=== PATIENT | male | born 1980 | race Caucasian/White ===

== ENCOUNTER → 2017-07-29 | Outpatient (CLI) | payer OTHER ==
--- NOTE | 2017-07-29 12:29 | EST ---
EXERCISE STRESS DATE OF SERVICE: 07/29/2017 AGE: 37 SEX: Male HT: 66 WT: 155 PROTOCOL: Vincent STAGE: V DURATION OF EXERCISE: 14:30 HEART RATE REST: 64 BLOOD PRESSURE REST: 129/69 MAXIMUM HEART RATE ACHIEVED: 158 MAXIMUM BLOOD PRESSURE: 181/67 85% MPHR: 157 100% MPHR: 185 METS: 14.9 INDICATIONS: Syncope. CLINICAL INFORMATION: History of syncope. Baseline heart rate was 64 beats per minute. Baseline blood pressure 129/69 mmHg. Baseline 12-lead ECG showed normal sinus rhythm with early repolarization abnormality and incomplete right bundle branch block morphology. The patient exercised on a Vincent protocol for 14 minutes 30 seconds. Peak heart rate 158 beats per minute. Normal blood pressure response to exercise. Occasional PVCs were noted during exercise, there was no ECG evidence for ischemia. No sustained or nonsustained arrhythmias were noted. IMPRESSION: Good exercise capacity. No ECG evidence for ischemia or arrhythmia. MMODL / IJN: [id number] /
== END | disposition home or self-care (01) ==
LOC: RADNMMAIN 11:04
PROVIDERS: ATTEND Family Medicine
DX: R55 Syncope and collapse (principal)
CPT/HCPCS: 93017

== ENCOUNTER → 2017-08-03 | Outpatient (CLI) | payer OTHER | END | disposition home or self-care (01) | LOC: RADECHMAIN 11:51 | PROVIDERS: ATTEND Family Medicine | DX: R00.1 Bradycardia, unspecified (principal); R00.0 Tachycardia, unspecified | CPT/HCPCS: 93270; 93271 ==

== ENCOUNTER → 2017-11-02 | Outpatient (CLI) | payer OTHER ==
--- NOTE | 2017-11-02 11:14 | CONS ---
CONSULTATION DATE OF SERVICE: 11/02/2017. A 37-year-old gentleman who has been evaluated in the [facility] for excessive daytime sleepiness. HISTORY OF PRESENT ILLNESS/SLEEP WAKE EVALUATION: Patient referred to sleepiness during the day for a long period of time. 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 He has several episodes of syncope. Presently, his sleep schedule on working days he sleeps from 8:30 a.m. until 3:30 pm. On days off, he sleeps from 11 p.m. until 6:30 am. He does have problem with falling asleep, has TV set in bedroom. He wakes up from sleep 2 times with nocturia, sometimes has discomfort in his legs, feeling some restless leg symptoms with history of kicking. Sometimes has to walk at night because he feels discomfort in his legs. [place] Sleepiness Scale is 11. PAST MEDICAL HISTORY: Positive for possible depression. MEDICATIONS: Wellbutrin. PAST SURGICAL HISTORY: None. SOCIAL HISTORY: Negative for smoking. Alcohol consumption occasional. FAMILY HISTORY: Hypertension, heart problems, asthma. REVIEW OF SYSTEMS: Excessive daytime sleepiness, difficulties to initiate sleep and multiple awakenings from sleep. PHYSICAL EXAM: A 37-year-old gentleman without distress. BP 118/74, HR 73, RR 16, height 5, 7, weight 163.8, BMI 25.5, temperature 97.7 oxygen saturation at room air 97%. OROPHARYNX: Extremely low position of soft palate. Restriction of nasal breathing bilaterally. Neck Supple, no JVD. Thyroid is not palpable. LUNGS Clear to percussion and to auscultation. Good air exchange. No wheezing or rhonchi. HEART S1, S2 regular. No murmurs, gallops, or rubs. ABDOMEN Soft and nontender. Bowel sounds are present. No organomegaly appreciated. EXTREMITIES No clubbing or cyanosis. PAYROLL CONSULTANT Awake, alert, and oriented X3. Cranial nerves 2 to 7 intact. There is no fasciculation or atrophy. noted. No focal deficits observed. IMPRESSION: 1. Awakenings from sleep with nocturia, extremely low position of soft palate. Restriction of nasal breathing. Possible obstructive sleep apnea-hypopnea syndrome. 2. Restless legs syndrome. 3. Possible periodic limb movements. 4. History of depression. 5. Episodes of syncope. 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 7. Seasonal allergy. PLAN: 1. Polysomnography for evaluation of patient breathing during the sleep, to check for possible periodic limb movements. 2. If sleep study will be negative for obstructive sleep apnea or periodic limb movements, multiple sleep latency test for objective evaluation, patient has symptoms of excessive daytime sleepiness. 3. Sleep hygiene with regular time in bed for at least 8 hours. 4. No driving if feeling any sleepiness. 5. Psychological techniques for treatment of insomnia should include stimulus control, worry time, no watching clock at night. Thank you very much for referring this patient for consultation. Sincerely, Kristian Fry MD, PhD, FAASM Diplomat of [employer] [employer] [employer] Breaker Table Worker of [facility] [place] MMODL / IJN: [id number] /
== END | disposition home or self-care (01) ==
LOC: SLEEP 09:42
PROVIDERS: ATTEND Internal Medicine
DX: R35.1 Nocturia (principal); G25.81 Restless legs syndrome; M27.8 Other specified diseases of jaws; R06.89 Other abnormalities of breathing; G47.69 Other sleep related movement disorders; F32.9 Major depressive disorder, single episode, unspecified; R55 Syncope and collapse; J30.2 Other seasonal allergic rhinitis; Z79.899 Other long term (current) drug therapy
CPT/HCPCS: 99211

== ENCOUNTER → 2017-11-24 | Outpatient (CLI) | payer OTHER ==
--- NOTE | 2017-11-24 18:04 | SFUN ---
SLEEP CENTER FOLLOW UP NOTE DATE OF SERVICE: 11/24/2017. HISTORY: A 37-year-old gentleman who has been followed in the Sleep Center to discuss results of sleep studies and plan of the treatment. I discussed results of sleep studies with patient in detail. Polysomnogram did not show any significant respiratory abnormalities. No significant periodic limb movements had been documented that night. The patient referred that night he did not feel any leg movements, but in the previous night, he told that he had a lot of leg movements at night and sometimes he cannot sleep well because of movements. Multiple sleep latency test on the following day after polysomnogram showed pathological sleepiness with a mean sleep latency only 3.9 minutes and REM periods had been documented. At the same time, the patient did not feel that he fell asleep. MEDICATIONS: Wellbutrin. Previously patient was on treatment with Adderall, which was stopped because she came for evaluation at the Sleep Center. PHYSICAL EXAM: GENERAL: During physical exam, no distress. VITAL SIGNS: BP 125/67, HR 74, RR 16, temp 98.8, weight 163, height 5 inches 7, BMI 25. HEENT PERRLA, EOMI, evaluation of oropharynx showed tongue protrudes midline. Neck Supple, no JVD. Thyroid is not palpable. LUNGS Clear to percussion and to auscultation. Good air exchange. No wheezing or rhonchi. HEART S1, S2 regular. No murmurs, gallops, or rubs. ABDOMEN Soft and nontender. Bowel sounds are present. No organomegaly appreciated. EXTREMITIES No clubbing or cyanosis. FELT TIPPING MACHINE TENDER Awake, alert, and oriented X3. Cranial nerves 2 to 7 intact. There is no fasciculation or atrophy. noted. No focal deficits observed. IMPRESSION: 1. No significant respiratory abnormalities during sleep study. 2. Pathological sleepiness by results of multiple sleep latency test, most probably narcolepsy. 3. History of significant amount of movements at night at home, which sometimes the patient does not sleep well with restless leg syndrome. 4. History of depression. PLAN: 1. The patient should be treated with daytime stimulants. He tolerated Adderall well. I think he may continue to use Adderall. The dose should be adjusted to be sure that his alertness is in normal range. I would suggest 5 mg 1 tablet in the early morning babysitter at 1 tablet around 2 p.m. According to results of multiple sleep latency test, the patient falls asleep very quickly and at the same time he does not remember that he fell asleep, which may create some dangers for driving. 2. No driving if feeling sleepiness, precautions related to driving. 3. Patient will try a small is dose of Mirapex 0.125 mg 1 to 2 tablets at bedtime for the restless leg symptoms. Please check iron profile including ferritin level, low level of iron may increase the risk for periodic limb movements. SSRIs also may increase risk for periodic limb movements. 4. HLA profile for narcolepsy. Thank you very much for allowing me to participate in management of your patient. Sincerely, Kristian Fry MD, PhD, FAASM Diplomat of [place] [employer] [place] [employer] Software Packager of [facility] [employer] YOJANA / COLIN: [id number] /
== END | disposition home or self-care (01) ==
LOC: SLEEP 15:51
PROVIDERS: ATTEND Internal Medicine
DX: G47.9 Sleep disorder, unspecified (principal); F32.9 Major depressive disorder, single episode, unspecified; Z79.899 Other long term (current) drug therapy

== ENCOUNTER 2018-08-03 06:05 | Emergency (ER) | payer OTHER ==
--- NOTE | 2018-08-03 06:41 | XR ---
EXAM: XR Right Elbow Complete, 3 or More Views CLINICAL HISTORY: ITS.REASON XR Reason: Pain TECHNIQUE: Frontal, lateral and oblique views of the right elbow. COMPARISON: No relevant prior studies available. FINDINGS/IMPRESSION: No acute fracture or dislocation. No joint effusion. No destructive changes or plain film evidence of osteomyelitis.
--- NOTE | 2018-08-03 07:11 | ED ---
Upper Extremity HPI - General Chief Complaint: Extremity Injury, Upper Stated Complaint: arm injury Time Seen by Provider: 08/03/18 07:04 Source: patient, RN notes reviewed Mode of arrival: ambulatory Limitations: no limitations - History of Present Illness Initial Comments: 38-year-old male presents emergency Department chief complaint of right elbow i njury. Patient states he was doing some tricks on his rollerblades with his kids 4 days ago on states he landed on his right elbow. Patient states he was sore initially but states worsen as he returned to work and has been leaning on his elbow. Patient has full range of motion. He states he feels pain when he fully extends it. Patient denies any paresthesias no weakness. Patient had prior right arm fracture. Patient offers no other complaints. - Related Data Allergies Allergy/AdvReac Type Severity Reaction Status Date / Time Penicillins AdvReac Nausea & Verified 02/24/17 22:35 Vomiting & Diarrhea Review of Systems ROS Statement: Those systems with pertinent positive or pertinent negative responses have been documented in the HPI. ROS Other: All systems not noted in ROS Statement are negative. Past Medical History Past Medical History: Asthma History of Any Multi-Drug Resistant Organisms: None Reported Past Surgical History: No Surgical Hx Reported Additional Past Surgical History / Comment(s): fifth finger nerve attachment Past Psychological History: No Psychological Hx Reported Smoking Status: Current some day smoker Past Alcohol Use History: Occasional Past Drug Use History: None Reported General Exam Limitations: no limitations General appearance: alert, in no apparent distress Head exam: Present: atraumatic, normocephalic, normal inspection Neck exam: Present: normal inspection, full ROM. Absent: tenderness, meningismus, lymphadenopathy Respiratory exam: Present: normal lung sounds bilaterally. Absent: respiratory distress, wheezes, rales, rhonchi, stridor Cardiovascular Exam: Present: regular rate, normal rhythm, normal heart sounds. Absent: systolic murmur, diastolic murmur, rubs, gallop, clicks Extremities exam: Present: other (Right elbow full range of motion neurovascular intact normal tenderness over the olecranon process region no tenderness above or below right elbow) Neurological exam: Present: reflexes normal. Absent: motor sensory deficit Skin exam: Present: warm, dry, intact, normal color. Absent: rash Course Vital Signs 08/03/18 06:10 Temperature 97.9 F Pulse Rate 61 Respiratory 20 Rate Blood Pressure 143/90 Medical Decision Making - Medical Decision Making 38-year-old male presented for fall right elbow injury. X-rays reviewed no fractures by radiologist. Patient's full range of motion neurovascular intact. Patient will be discharged return parameters were discussed. - Radiology Data Radiology results: report reviewed, image reviewed X-rays right elbow reviewed no acute fracture. Disposition Clinical Impression: Contusion of right elbow Disposition: HOME SELF-CARE Condition: Stable Instructions (If sedation given, give patient instructions): Elbow Bursitis (ED) Additional Instructions: Please return to the Emergency Department if symptoms worsen or any other concerns. Is patient prescribed a controlled substance at d/c from ED?: No Referrals: Tariq Jordan DO [Primary Care Provider] - 1-2 days Matthew Martines DO [Medical Doctor] - 1-2 days Time of Disposition: 07:10
[2018-08-03 07:26] VITALS: BP 121/81; PULSE 62; RESP 18; TEMP 98
== END 2018-08-03 07:22 | disposition home or self-care (01) ==
LOC: EC 06:05
DX: S50.01XA Contusion of right elbow, initial encounter (principal); F17.200 Nicotine dependence, unspecified, uncomplicated; Z87.81 Personal history of (healed) traumatic fracture; Z88.0 Allergy status to penicillin; W19.XXXA Unspecified fall, initial encounter; Y93.89 Activity, other specified; Y92.89 Other specified places as the place of occurrence of the external cause
CPT/HCPCS: 99283

== ENCOUNTER 2019-07-03 03:39 | Emergency (ER) | payer OTHER ==
[2019-07-03 03:47] VITALS: RESP 18; TEMP 97.7
[2019-07-03] MEDS ORDERED: ALBUTEROL NEBULIZED 2.5 MG/3 ML INHALATION STA (04:02)
--- NOTE | 2019-07-03 04:18 | ED ---
URI HPI - General Chief Complaint: Upper Respiratory Infection Stated Complaint: Diff Breathing Time Seen by Provider: 07/03/19 03:51 Source: patient Mode of arrival: ambulatory Limitations: no limitations - History of Present Illness Initial Comments: This patient is 39-year-old man presents to be evaluated for cough and wheeze. The patient states that symptoms started nearly 2 weeks ago with upper respiratory symptoms including congestion and a little bit of cough. He states that things that seem to move into his chest. He initially was having relief with his home albuterol but states that it seems to have stopped helping and that's when he presents to be evaluated tonight. He has not noted fever or chills. No chest pain. MD Complaint: cough Onset/Timin -: week(s) Improves With: nothing Worsens With: nothing Associated Symptoms: nasal congestion, cough Treatments Prior to Arrival: other - Related Data Previous Rx's Medication Instructions Recorded Albuterol Inhaler [Ventolin Hfa 1 - 2 puff INHALATION Q6HR PRN #1 07/03/19 Inhaler] inhaler predniSONE 60 mg PO DAILY #30 tab 07/03/19 Allergies Allergy/AdvReac Type Severity Reaction Status Date / Time Penicillins AdvReac Nausea & Verified 07/03/19 03:47 Vomiting & Diarrhea Review of Systems ROS Statement: Those systems with pertinent positive or pertinent negative responses have been documented in the HPI. ROS Other: All systems not noted in ROS Statement are negative. Constitutional: Denies: fever, chills Respiratory: Reports: cough, dyspnea, wheezes. Denies: hemoptysis Cardiovascular: Denies: chest pain, palpitations, syncope Gastrointestinal: Denies: abdominal pain, vomiting, diarrhea Genitourinary: Denies: dysuria, hematuria Musculoskeletal: Denies: back pain Skin: Denies: rash Neurological: Denies: headache Past Medical History Past Medical History: Asthma History of Any Multi-Drug Resistant Organisms: None Reported Past Surgical History: No Surgical Hx Reported Additional Past Surgical History / Comment(s): fifth finger nerve attachment Past Psychological History: No Psychological Hx Reported Smoking Status: Current some day smoker Past Alcohol Use History: Occasional Past Drug Use History: None Reported General Exam Limitations: no limitations General appearance: alert, in no apparent distress Head exam: Present: atraumatic Eye exam: Present: normal appearance ENT exam: Present: normal oropharynx Respiratory exam: Present: wheezes. Absent: respiratory distress, rales, rhonchi, stridor, accessory muscle use, decreased breath sounds Cardiovascular Exam: Present: regular rate, normal rhythm, normal heart sounds. Absent: systolic murmur, diastolic murmur, rubs, gallop GI/Abdominal exam: Present: soft. Absent: distended, tenderness, guarding, rebound, rigid, mass Extremities exam: Present: normal inspection, normal capillary refill. Absent: pedal edema, calf tenderness Neurological exam: Present: alert Skin exam: Present: warm, dry, intact, normal color. Absent: rash Course Vital Signs 07/03/19 07/03/19 07/03/19 03:44 04:15 04:32 Temperature 97.7 F Pulse Rate 64 68 68 Respiratory 18 Rate Blood Pressure 165/108 O2 Sat by Pulse 99 Oximetry Disposition Clinical Impression: Upper respiratory tract infection Disposition: HOME SELF-CARE Condition: Good Instructions (If sedation given, give patient instructions): Upper Respiratory Infection (ED) Prescriptions: predniSONE 60 mg PO DAILY #30 tab Albuterol Inhaler [Ventolin Hfa Inhaler] 1 - 2 puff INHALATION Q6HR PRN #1 inhaler PRN Reason: Wheezing Is patient prescribed a controlled substance at d/c from ED?: No Referrals: None,Stated [REFERRING] - 1-2 days
--- NOTE | 2019-07-03 04:25 | XR ---
EXAMINATION TYPE: XR chest 2V DATE OF EXAM: 07/03/2019 COMPARISON: NONE HISTORY: Short of breath TECHNIQUE: FINDINGS: Heart and mediastinum are normal. Lungs are clear. Diaphragm is normal. Bony thorax appears normal. IMPRESSION: Normal chest
[2019-07-03] MEDS ORDERED: predniSONE 20 MG TAB PO STA (05:39)
[2019-07-03 05:54] VITALS: BP 131/96; PULSE 71
== END 2019-07-03 05:55 | disposition home or self-care (01) ==
LOC: EC 03:39
DX: J06.9 Acute upper respiratory infection, unspecified (principal); F17.200 Nicotine dependence, unspecified, uncomplicated; Z88.0 Allergy status to penicillin; Z87.09 Personal history of other diseases of the respiratory system
CPT/HCPCS: 94640; 71046; 99284; J7512

== ENCOUNTER → 2023-07-22 | Day surgery (SDC) | payer OTHER ==
[2023-07-21 09:19] VITALS: BMI 25.0
[~2023-07-22] MED LIST: PROPOFOL 10 MG/ML 20 ML VIAL IV ONE
[2023-07-22] MEDS: LACTATED RINGERS 1,000 ML IV SCH (10:31)
[2023-07-22 11:00] VITALS: RESP 18; TEMP 98.4
--- NOTE | 2023-07-22 11:41 | P.PCN ---
Date of Procedure: 07/22/23 Procedure(s) Performed: BRIEF HISTORY: Patient is a 43-year-old pleasant white male scheduled for an elective colonoscopy as a part of Evaluation of intermittent rectal bleeding for the last 6 months duration PROCEDURE PERFORMED: Colonoscopy. PREOPERATIVE DIAGNOSIS: Intermittent rectal bleeding. IV sedation per Anesthesia. PROCEDURE: After informed consent was obtained, the patient, was brought into the endoscopy unit. IV sedation was administered by Anesthesia under continuous monitoring. Digital rectal examination was normal. Initially the Olympus CF-160 flexible video colonoscope was then inserted in the rectum, gradually advanced into the cecum without any difficulty. Careful examination was performed as the scope was gradually being withdrawn. Ileocecal valve and the appendiceal orifice were visualized and appeared normal. Prep was excellent. Mucosa of the cecum, ascending colon, transverse colon, descending colon, sigmoid colon, and rectum appeared normal.Scattered sigmoid diverticulosis. Retroflexion was performed in the rectum andGrade 2 internal hemorrhoids were seen. The patient tolerated the procedure well. IMPRESSION: Grade 2 internal hemorrhoids Scattered sigmoid diverticulosis No evidence of colorectal neoplasia RECOMMENDATIONS: Findings of this examination were discussed with the patient As well as his family.He was advised to be a high-fiber diet and take MiraLAX on a daily basis. Recommend repeat screening colonoscopy in 10 years..
[2023-07-22 12:15] VITALS: BP 131/81; PULSE 59
== END ==
LOC: ORWHC2ENDO 10:00
PROVIDERS: ATTEND Internal Medicine Gastroenterology
DX: K62.5 Hemorrhage of anus and rectum (principal); K57.30 Diverticulosis of large intestine without perforation or abscess without bleeding; K64.1 Second degree hemorrhoids; J45.909 Unspecified asthma, uncomplicated; F41.9 Anxiety disorder, unspecified; F32.A Depression, unspecified; K59.00 Constipation, unspecified; Z88.0 Allergy status to penicillin; Z79.899 Other long term (current) drug therapy
CPT/HCPCS: 45378; J2704